=== PATIENT | male | born 1965 | race Caucasian/White ===

== ENCOUNTER 2018-02-03 14:58 | Emergency (ER) | payer MEDICAID ==
[~2018-02-03] VITALS: Ht 170.2 cm; Wt 109.8 kg
[2018-02-03 16:18] LABS: Basophils # (auto) 0 uL; Basophils % (auto) 0.4 % (0.0-2.0); Eosinophils # (auto) 0.4 uL; Eosinophils % (auto) 5.2 % (0.0-7.0); Hematocrit 38.7 % (41.0-53.0); Hemoglobin 12.6 g/dL (13.5-17.5); Lymphocytes % (auto) 12.5 % (10.0-50.0); Mean Corpuscular Hemoglobin 28.7 pg (28.0-32.0); Mean Corpuscular Hgb Conc. 32.6 g/dL (32.0-36.0); Mean Corpuscular Volume 88.2 fL (80.0-100.0); Monocytes # (auto) 0.4 uL; Monocytes % (auto) 5.3 % (0.0-12.0); Neutrophils # (auto) 6.3 uL; Neutrophils % (auto) 76.6 % (37.0-80.0); Nucleated Red Blood Cells % 0.1 %; Platelet Count (auto) 248 10^3/uL (140-450); Red Blood Cells 4.39 10^6/uL (4.5-5.90); Red Cell Distribution Width 13.6 % (11.8-14.3); White Blood Cell 8.2 10^3/uL (4.4-10.8)
[2018-02-03 16:37] LABS: Albumin 3.1 g/dL (3.4-5.0); BUN/Creatinine Ratio 16.8; Bilirubin, Total 0.5 mg/dL (0.2-1.0); Calcium 8.2 mg/dL (8.5-10.1); Potassium 3.8 mmol/L (3.5-5.1); Total Protein 6.4 g/dL (6.4-8.2)
[2018-02-03] MEDS ORDERED: SODIUM CHLORIDE 0.9% 1,000 ML IV ONE (17:26)
[2018-02-03] MEDS ORDERED: TETANUS-DIPTH-ACEL PERTUSSIS 0.5ML SYRG IM ONE (17:30)
[2018-02-03 21:45] VITALS: BP 124/66
== END 2018-02-03 22:25 | disposition home or self-care (01) ==
LOC: ER 14:58
DX: M54.5 Low back pain (principal); G89.29 Other chronic pain; R06.02 Shortness of breath; E66.01 Morbid (severe) obesity due to excess calories; R60.9 Edema, unspecified; E83.41 Hypermagnesemia; R74.8 Abnormal levels of other serum enzymes; E46 Unspecified protein-calorie malnutrition; I10 Essential (primary) hypertension; M10.9 Gout, unspecified; Z68.37 Body mass index [BMI] 37.0-37.9, adult
CPT/HCPCS: 36415; 71046; 74176; 80053; 83690; 83735; 84443; 84484; 85025; 90471; 90715; 93005; 99285; J7030; V5281

== ENCOUNTER 2018-02-14 17:36 | Emergency (ER) | payer MEDICAID ==
[~2018-02-14] VITALS: Ht 170.2 cm; Wt 108.9 kg
[2018-02-14 17:48] VITALS: BP 150/88
[2018-02-14 19:06] LABS: Urine Bacteria NONE SEEN /hpf (None Seen); Urine Blood Negative /uL (Negative); Urine Mucus FEW (None Seen); Urine Specific Gravity 1.022 (1.001-1.035); Urine WBC <1 /hpf (0 - 3)
== END 2018-02-14 21:44 | disposition left against medical advice (07) ==
LOC: ER 17:40
DX: R30.9 Painful micturition, unspecified (principal); Z53.21 Procedure and treatment not carried out due to patient leaving prior to being seen by health care provider
CPT/HCPCS: 81001

== ENCOUNTER 2018-04-12 13:17 | Emergency (ER) | payer MEDICAID ==
[~2018-04-12] VITALS: Ht 170.2 cm; Wt 97.1 kg
[2018-04-12 13:31] VITALS: BP 133/96
[2018-04-12] MEDS ORDERED: KETOROLAC TROMETH 60MG/2ML VIAL IM ONE (15:15)
[2018-04-12] MEDS ORDERED: NEOMYCIN-BACITRACIN-POLYM UNITDOSE PKG TOP OINT TOP ONE (15:15)
[2018-04-12] MEDS ORDERED: NEOMYCIN-BACITRACIN-POLYM 15GM TOP OINT TOP SCH (22:00)
== END 2018-04-12 15:32 | disposition home or self-care (01) ==
LOC: ER 13:17
DX: S30.810A Abrasion of lower back and pelvis, initial encounter (principal); I10 Essential (primary) hypertension; M10.9 Gout, unspecified; F15.90 Other stimulant use, unspecified, uncomplicated; V49.69XA Unspecified car occupant injured in collision with other motor vehicles in traffic accident, initial encounter; Y93.89 Activity, other specified; Y99.8 Other external cause status; Y92.89 Other specified places as the place of occurrence of the external cause
CPT/HCPCS: 96372; 99283; J1885

== ENCOUNTER 2018-05-16 11:04 | Emergency (ER) | payer MEDICAID ==
[~2018-05-16] VITALS: Ht 170.2 cm; Wt 110.7 kg
[2018-05-16 11:10] VITALS: BP 138/102
== END 2018-05-16 14:05 | disposition left against medical advice (07) ==
LOC: ER 11:06

== ENCOUNTER 2020-06-08 18:33 | Emergency (ER) | payer MEDICAID ==
[~2020-06-08] VITALS: Ht 170.2 cm; Wt 85.7 kg
[2020-06-08 18:34] VITALS: BP 157/102
== END 2020-06-09 03:47 | disposition left against medical advice (07) ==
LOC: ER 18:33
DX: R05 Cough (principal); Z53.21 Procedure and treatment not carried out due to patient leaving prior to being seen by health care provider

== ENCOUNTER 2024-01-20 22:03 | Emergency (ER) | payer MEDICAID ==
[~2024-01-20] VITALS: Ht 170.2 cm; Wt 102.4 kg
[2024-01-21] MEDS: TETRACAINE HCL 0.5% OPTH(EYE) SOLN 4ML RIGHTEYE ONE (00:14)
[2024-01-21] MEDS: FLUORESCEIN SOD OPTH TEST STRIP RIGHTEYE ONE (00:14)
[2024-01-21 00:20] VITALS: BP 153/80; PULSE 87; RESP 19; O2SAT 97
[2024-01-21] MEDS: SODIUM CHLORIDE 0.9% 500 ML IV ONE (00:55)
[2024-01-21] MEDS ORDERED: MOXI0.5D9 OP (01:23)
== END 2024-01-21 01:41 | disposition home or self-care (01) ==
LOC: ER 22:03
DX: T15.91XA Foreign body on external eye, part unspecified, right eye, initial encounter (principal); F15.90 Other stimulant use, unspecified, uncomplicated; X58.XXXA Exposure to other specified factors, initial encounter; Y93.89 Activity, other specified; Y92.89 Other specified places as the place of occurrence of the external cause; Y99.8 Other external cause status
CPT/HCPCS: 99284; J7040

== ENCOUNTER 2024-09-10 12:24 | Emergency (ER) | payer MEDICAID ==
[~2024-09-10] VITALS: Ht 170.2 cm; Wt 103.5 kg
[~2024-09-10 12:24] MED LIST: MOXI0.5D9 OP
[2024-09-10 12:41] VITALS: BP 131/88; PULSE 88; RESP 14; TEMP 96; O2SAT 96
== END 2024-09-10 18:35 | disposition left against medical advice (07) ==
LOC: ER 12:24
DX: M79.672 Pain in left foot (principal); Z53.21 Procedure and treatment not carried out due to patient leaving prior to being seen by health care provider